=== PATIENT | female | born 2000 | race Caucasian/White ===

== ENCOUNTER 2024-05-02 15:51 | Emergency (ER) | payer BC, SELFPAY ==
[2024-05-02 15:52] VITALS: BP 141/79; PULSE 74; RESP 16; TEMP 36.6; O2SAT 99; BMI 35.5
[2024-05-02 16:01] VITALS: BP 120/76; PULSE 99; O2SAT 100
--- NOTE | 2024-05-02 16:05 | CT_ITS ---
PROCEDURE INFORMATION: Exam: CT Abdomen And Pelvis With Contrast Exam date and time: 05/02/2024 4:41 PM Age: 23 years old Clinical indication: Abdominal pain; Generalized; Additional info: Lower abd pain, llq, brbpr TECHNIQUE: Imaging protocol: Computed tomography of the abdomen and pelvis with contrast. Radiation optimization: All CT scans at this facility use at least one of these dose optimization techniques: automated exposure control; mA and/or kV adjustment per patient size (includes targeted exams where dose is matched to clinical indication); or iterative reconstruction. Contrast material: ISOVUE; Contrast volume: 75 ml; Contrast route: IV; COMPARISON: No relevant prior studies available. FINDINGS: Liver: Unremarkable. Gallbladder and biliary ducts: Unremarkable. Pancreas: Unremarkable. Spleen: Unremarkable. Adrenal glands: Unremarkable. Kidneys and ureters: Single punctate (2-3mm) non-obstructing stone in the right kidney. No other renal or ureteral stones. No hydronephrosis. Cortical renal scarring also noted in the right kidney, consistent with chronic sequela of prior infectious or traumatic insult. Stomach and bowel: No evidence of bowel obstruction or acute inflammatory changes in the gastrointestinal tract. No colonic diverticulosis or other abnormality identified to explain reported history of rectal bleeding. Appendix: Appendix is visualized and is normal. Intraperitoneal space: Trace simple, low-density free fluid in the pelvis, within normal limits for physiologic fluid. No focal fluid collection. No pneumoperitoneum. Vasculature: Unremarkable. Lymph nodes: Unremarkable. Urinary bladder: Unremarkable. Reproductive: Malpositioned intrauterine device with stem extending into the cervix and left arm penetrating into the myometrium at the cervicouterine junction. Uterine anatomy is normal with slightly exaggerated anteverted and anteflexed morphology. Right ovary contains a physiologic corpus luteum. The left ovary is unremarkable. Bones/joints: Chronic compression fracture deformity in the superior endplate of L3. No evidence of acute osseous abnormality. Soft tissues: Unremarkable. IMPRESSION: 1. Malpositioned intrauterine device with stem extending into the cervix and left arm penetrating into the myometrium at the cervicouterine junction. No evidence of acute bowel wall injury in the pelvis or other abnormality in the gastrointestinal tract to explain reported history of rectal bleeding. 2. Single punctate (2-3mm) non-obstructing stone in the right kidney.
--- NOTE | 2024-05-02 16:07 | [facility].EDGENADL ---
Discharge Plan Disposition Patient Disposition: Home, Self-Care Condition: Good Prescriptions Prescriptions: New hydrocortisone acetate [Anusol-HC] 25 mg suppository 25 mg ME HS PRN (Reason: hemorrhoids) Qty: 24 0RF ketorolac 10 mg tablet 10 mg PO Q8H PRN (Reason: pain) 3 Days Qty: 12 0RF Referrals Follow up/Referrals: Mandi Khoury DO [Staff Physician] - See instructions Fransisco Locke PA [Primary Care Provider] - See instructions Activity Restrictions/Add. Instructions Additional Instructions/Restrictions: You were evaluated in the emergency department today. Your IUD is found to be malpositioned at this time. I recommend follow-up with gynecology over the next 24 hours. Please follow-up with Dr. Khoury. Her office should contact you to help schedule an appointment, however if there are any issues, I would recommend calling the office to see. She would like for you to have an outpatient ultrasound tomorrow. I am prescribing you Toradol to take at home as needed for pain. Do not take ibuprofen or other NSAIDs while taking Toradol. Alternatively, you can take ibuprofen at home every 6 hours as needed for pain. You may also take Tylenol every 4-6 hours as needed for pain. Return to the emergency department for new or worsening symptoms Clinical Impressions Clinical Impression: Malpositioned IUD, Hemorrhoid, Abdominal pain, LLQ, BRBPR (bright red blood per rectum), Diarrhea Stand Alone Forms Stand Alone Forms: Work/School Release Instructions Patient Instructions: DI for Hemorrhoids, DI for Intrauterine Device Removal, DI for Gastrointestinal Bleeding Print Language Print Language: Georgian Discharge ED Provider: Kesha Mendieta General Adult HPI General Chief complaint: GI Bleed Stated complaint: bloody stool, Back ache Time Seen by Provider: 05/02/24 15:56 Mode of Arrival: Ambulatory Source of Information: Patient Limitations: No Limitations Description of Symptoms (Recalled from ER Triage Doc. by RN): blood in stool History of Present Illness HPI narrative: This patient is a 23-year-old female presenting to the emergency department for evaluation with concern for bright red blood per rectum, left lower quadrant pain, and low back pain. Patient states that has been going on for about 2 days. She notes that she was on metformin but she missed 4 doses, however she started taking it again 2 days ago. She notes that she always has loose stools with the metformin, but for the last 2 days she has had bloody stools. She notes that there is enough blood to fill the entire toilet bowl. It is all bright red. No melena. She denies any fevers, nausea, vomiting, abnormal vaginal discharge or bleeding, or urinary symptoms. She does note that she has an IUD and was wondering if this could be related. No history of Crohn's or ulcerative colitis, no prior history of endoscopy. She denies any known history of hemorrhoids. No other concerns noted at this time. Related Data Previous Rx's ?Medication ?Instructions ?Recorded hydrocortisone acetate 25 mg 25 mg ME HS PRN hemorrhoids #24 ea 05/02/24 rectal suppository (Anusol-HC) ketorolac 10 mg tablet 10 mg PO Q8H PRN pain 3 days #12 05/02/24 tabs Allergies Allergy/AdvReac Type Severity Reaction Status Date / Time No Known Allergies Allergy Verified 05/02/24 16:08 [facility] Disclaimer: The information contained in this section may have been updated after the patient was seen, as this information can be updated by other users. Social History Smoking Status: Never smoker alcohol intake: never current occupational status: employed ROS Obtained: Yes All systems reviewed & no additional complaints except as documented Physical Exam General General appearance: alert and in no apparent distress Head Head exam: atraumatic and normocephalic Eye Eye exam: Present normal appearance, PERRL and EOMI ENT ENT exam: Present normal exam, normal oropharynx, mucous membranes moist and normal external ear exam Neck Neck exam: Present normal inspection, full ROM and trachea midline; Absent tenderness Chest Chest inspection: Present normal inspection and symmetric chest wall rise; Absent tenderness Respiratory Respiratory exam: Present normal lung sounds bilaterally; Absent respiratory distress, wheezes, stridor or accessory muscle use Cardiovascular Cardiovascular exam: Present regular rate and normal rhythm Abdominal Exam Abdominal exam: Present soft and tenderness (Left lower quadrant, suprapubic); Absent distention, guarding, rebound or rigidity Extremities Exam Extremities exam: Present normal inspection, full ROM and normal capillary refill; Absent tenderness or edema Back Exam Back exam: Present normal inspection and full ROM; Absent tenderness Neurological Exam Neurological exam: Present alert, oriented X3, CN II-XII intact and normal gait; Absent motor sensory deficit Psychiatric Psychiatric exam: Present normal affect and normal mood Skin Skin exam: Present warm and dry Medical Decision Making Medical Records Medical records reviewed: Yes I reviewed the patient's medical records. Screening: Per USPSTF and CDC recommendations, given the prevalence of disease in our region, it is our hospital?s policy to screen for HIV and viral Hepatitis for all patients aged 18 and over and those with ongoing risk factors. Chance Inquiry Pt receiving controlled substance: No Vital Signs: 05/02/24 15:52 05/02/24 16:01 05/02/24 16:47 Temperature 97.9 F Temperature Source Oral Pulse Rate 99 H 72 Pulse Rate [Right] 74 Respiratory Rate 16 Blood Pressure 120/76 115/82 Blood Pressure [Right Arm] 141/79 H Blood Pressure Mean [Right Arm] 99 Blood Pressure Source 02 Sat by Pulse Oximetry 99 100 99 Oxygen Delivery Method 05/02/24 18:00 Temperature 97.9 F Temperature Source Oral Pulse Rate 70 Pulse Rate [Right] Respiratory Rate 18 Blood Pressure 118/80 Blood Pressure [Right Arm] Blood Pressure Mean [Right Arm] Blood Pressure Source Automatic Cuff 02 Sat by Pulse Oximetry Oxygen Delivery Method Room Air Lab Data Lab results reviewed: Yes I reviewed the patient's lab results. Lab Results 05/02/24 16:15: Urine Color Yellow, Urine Appearance Clear, Urine pH 6.0, Ur Specific [place] >= 1.030, Urine Protein Negative, Urine Glucose (UA) Negative, Urine Ketones Negative, Urine Blood Negative, Urine Nitrate Negative, Urine Bilirubin Negative, Urine Urobilinogen 0.2, Ur Leukocyte Esterase Negative, Urine RBC Occasional, Urine WBC 5-10, Ur Squamous Epith Cells 20-50, Urine Bacteria 3+, Urine Mucus 4+, Urine HCG, Qual Negative 05/02/24 16:16: WBC 8.7, RBC 5.27, Hgb 14.9, Hct 44.7, MCV 84.9, MCH 28.3, MCHC 33.4, RDW 13.5, Plt Count 207, MPV 12.7 H, Neut % (Auto) 70.5, Lymph % (Auto) 23.3, [place] % (Auto) 4.4, Eos % (Auto) 1.0, Baso % (Auto) 0.7, Neut # (Auto) 6.1, Lymph # (Auto) 2.0, [place] # (Auto) 0.4, Eos # (Auto) 0.1, Baso # (Auto) 0.1, Sodium 141, Potassium 3.6, Chloride 105, Carbon Dioxide 27, Anion Gap 12.6, BUN 9, Creatinine 0.80, Estimated Creat Clear 171, Estimated GFR 88, Est GFR ( Amer) 107, Glucose 107 H, Calcium 9.9, Total Bilirubin 0.6, AST 31, ALT 32, Alkaline Phosphatase 59, Total Protein 7.6, Albumin 4.9, Globulin 2.7, Albumin/Globulin Ratio 1.8 05/02/24 16:16 05/02/24 16:16 Orders (Tests/Meds): ED MEDICATIONS Discontinued Medications Generic Name Dose Route Start Last Admin Trade Name Freq PRN Reason Stop Dose Admin Iopamidol 75 ml 05/02/24 16:47 05/02/24 16:48 Iopamidol-370 (76%);100ml Bottle IV 05/02/24 16:48 75 ml ONCE ONE Administration Ketorolac Tromethamine 15 mg 05/02/24 17:28 05/02/24 18:16 Ketorolac 30mg/Ml Vial IV 05/02/24 17:29 15 mg ONCE ONE Administration Sodium Chloride 10 ml 05/02/24 16:47 05/02/24 16:48 Sodium Chloride 0.9% 10ml Syr (Rad Only) IV 05/02/24 16:48 10 ml ONCE ONE Administration ORDERS Category Date Time Status CT abdomen pelvis w con Stat Cat Scan 05/02/24 16:05 Completed CBC w/Auto Diff [Complete Blood Count Auto Diff] Stat Lab 05/02/24 16:16 Completed CMP [Comprehensive Metabolic Panel] Stat Lab 05/02/24 16:16 Completed UA [Urinalysis and Microscopic] Stat Lab 05/02/24 16:15 Completed Urine , HCG Qual. Stat Lab 05/02/24 16:15 Completed Urine Culture Stat Micro 05/02/24 16:15 Received Medical Decision Narrative: In summary, this patient is a 23-year-old female presenting to the Emergency Department for evaluation of lower abdominal pain. Differential diagnoses considered include but are not limited to ulcerative colitis, Crohn's disease, hemorrhoids, infectious colitis, diverticulitis. Ruling out the most morbid conditions drove assessment. On exam, the patient has left lower quadrant tenderness but no rebound or guarding. Rectal exam was performed which demonstrated a small external hemorrhoid is not thrombosed as well as palpable internal hemorrhoid that is also not thrombosed. No blood on rectal exam. Workup included CBC, CMP, CT abdomen pelvis with IV contrast, diarrhea panel, urinalysis, urine test. I independently interpreted CT scan prior to the radiologist read and noted malpositioned IUD. Please see their read for final interpretation. I had an interactive discussion with the radiologist who noted that she was concerned that the IUD was embedded in the uterus.. Labs were obtained that demonstrated reassuring CBC, reassuring chemistry, urinalysis is not concerning for infection. She is not anemic and has no significant elevation of BUN to suggest significant GI bleed. I feel her rectal bleeding is likely related to hemorrhoids. Given the malpositioned IUD with embedment into the uterine wall, I called and had an interactive discussion with Dr. Khouyr with gynecology who advised the patient should follow-up outpatient tomorrow for ultrasound and clinic appointment. Patient was given instructions for this as well as outpatient order. I gave the patient Toradol to have as needed for the pelvic pain as well as Anusol suppositories for the hemorrhoids. Ultimately at this time I feel that she is appropriate for discharge home with the plan to keep very close follow-up with gynecology tomorrow. Strict return precautions were given and she was discharged after all questions were answered. Critical Care Critical Care Time Critical Care Time: No
[2024-05-02 16:18] LABS: Microscopic, Urine URINE MICROSCOPIC (MICROSCOPIC)
[2024-05-02 16:21] LABS: Appearance,Urine CLEAR (Clear); Bilirubin,Urine Negative (Negative); Blood, Urine Negative (Negative); Color,Urine YELLOW (Yellow); Glucose,Urine (UA) Negative (Negative); Ketones,Urine Negative (Negative); Leukocyte Esterase,Urine Negative (Negative); Nitrate,Urine Negative (Negative); Protein,Urine Negative (Negative); Specific Gravity, Urine >= 1.030 (1.005-1.030); Urobilinogen,Urine 0.2 EU/dl (0.2)
[2024-05-02 16:28] LABS: Basophils # 0.1 K/mm3 (0-0.2); Basophils % 0.7 % (0.1-2.0); Eosinophils # 0.1 K/mm3 (0.0-0.4); Hematocrit 44.7 % (37.0-47.0); Hemoglobin 14.9 g/dL (12.2-16.2); Lymphocytes % 23.3 % (10-50); Mean Corpuscular HGB Conc 33.4 g/dL (31.8-35.4); Mean Corpuscular Hemoglobin 28.3 pg (27.0-31.2); Mean Corpuscular Volume 84.9 fl (81-99); Mean Platelet Volume 12.7 fl (7.4-10.4); Monocytes # 0.4 K/mm3 (0.1-1.0); Monocytes % 4.4 % (1.7-9.3); Neutrophils # 6.1 K/mm3 (1.8-7.8); Neutrophils % 70.5 % (37.0-80.0); Platelet Count 207 K/mm3 (142-424); Red Blood Count 5.27 M/mm3 (4.20-5.40); Red Cell Distribution Width 13.5 % (11.5-17.5); White Blood Count 8.7 K/mm3 (4.8-10.8)
[2024-05-02 16:31] LABS: Urine Pregnancy, HCG Qual. Negative (Negative)
[2024-05-02 16:39] LABS: Albumin Level 4.9 g/dl (3.5-5.0); Chloride 105 mmol/L (98-107); Potassium 3.6 mmoL/L (3.5-5.1); Sodium 141 mmol/L (136-145)
[2024-05-02 16:42] LABS: Alanine Aminotransferase 32 U/L (12-78); Albumin/Globulin Ratio 1.8 (1.1-1.8); Alkaline Phosphatase 59 U/L (38-126); Anion Gap 12.6 mEq/L (5-15); Aspartate Amino Transferase 31 U/L (14-36); Bilirubin,Total 0.6 mg/dl (0.2-1.3); Blood Urea Nitrogen 9 mg/dl (7-17); Carbon Dioxide 27 mmol/L (22.0-30.0); Creatinine Clearance Estimated 171 mL/min (50-200); Estimated Glomerular Filt Rate 88 ml/min (>60); GFR (African American) 107 ML/MIN (>60); Globulin 2.7 g/dL (1.3-3.2); Total Protein,Serum 7.6 g/dl (6.3-8.2)
[2024-05-02 16:43] LABS: Calcium 9.9 mg/dl (8.4-10.2); Glucose 107 mg/dl (74-100)
[2024-05-02 16:47] VITALS: BP 115/82; PULSE 72; O2SAT 99
[2024-05-02] MEDS: IOPAMIDOL-370 (76%);100ML BOTTLE 75 ML IV (16:48)
[2024-05-02] MEDS: SODIUM CHLORIDE 0.9% 10ML SYR (RAD ONLY) 10 ML IV (16:48)
[2024-05-02 16:49] LABS: Bacteria,Urine 3+ /lpf; Mucus,Urine 4+ /lpf; RBC,Urine Occasional #/hpf (0-3); Squamous Epithelial Cell,Urine 20-50 #/hpf (0-5)
--- NOTE | 2024-05-02 17:26 | PC.NURSE ---
Dr. Mendieta is s/w Dr. Mandi Khoury
[2024-05-02 18:00] VITALS: BP 118/80; PULSE 70; RESP 18; TEMP 36.6; O2SAT 98
[2024-05-02] MEDS: KETOROLAC 30MG/ML VIAL 15 MG IV (18:16)
== END 2024-05-02 18:18 | disposition home or self-care (01) ==
PROVIDERS: Emergency Provider Emergency Medicine; PCP Student in an Organized Health Care Education/Training Program
DX: K92.2 Gastrointestinal hemorrhage, unspecified (principal); K64.9 Unspecified hemorrhoids; T83.32XA Displacement of intrauterine contraceptive device, initial encounter; R19.7 Diarrhea, unspecified; M54.50 Low back pain, unspecified; R10.32 Left lower quadrant pain
CPT/HCPCS: 74177; 80053; 81001; 81025; 85025; 87086; 96374; 99285; J1885; Q9967

== ENCOUNTER 2024-05-03 10:42 | Outpatient (CLI) | payer BC, SELFPAY ==
--- NOTE | 2024-05-03 10:43 | US_ITS ---
PROCEDURE: US TRANSVAGINAL CLINICAL INDICATION: IUD is not in the correct location COMPARISON: CT CT ABDOMEN PELVIS W CON from 05/02/2024 FINDINGS: Transvaginal sonographic images of the pelvis were obtained. UTERUS: 8.7 cm x 5.1cmx 3.8 cm with a combined endometrial thickness of 5.1mm. There is an IUD present and located in the upper cervical canal. LEFT OVARY: 3.0cmx2.5cmx2.1cm with a volume of 8.2ml. There are multiple small peripheral follicles giving the ovary a polycystic appearance. RIGHT OVARY: 3.2cmx 3.3cmx3.2cm with a volume of 17.8ml. There are multiple small peripheral follicles giving the ovary a polycystic appearance. Both ovaries are seen and appear polycystic. Doppler flow to both ovaries are seen. There is no fluid in the cul-de-sac. IMPRESSION: 1. Anteverted uterus normal in shape and size. The endometrium is thin and homogeneous. 2. There is an IUD that is malpositioned in the upper cervix. Suggest removal and replacement. 3. Both ovaries are seen and appear polycystic. 4. No fluid in the cul-de-sac. Dictated by: Agus Herrera MD 05/04/2024 08:04 Agus Herrera MD in OV 05/04/2024 08:04
== END 2024-05-03 23:59 | disposition home or self-care (01) ==
LOC: RAD 10:43
PROVIDERS: PCP Student in an Organized Health Care Education/Training Program; Visit Provider Obstetrics & Gynecology
DX: T83.32XA Displacement of intrauterine contraceptive device, initial encounter (principal)
CPT/HCPCS: 76830